=== PATIENT | female | born 1990 | race Caucasian/White ===

== ENCOUNTER → 2024-01-18 12:13 | Outpatient (REF) | payer OTHER, SELFPAY ==
[2024-01-18 14:39] LABS: % Basophils 0.9 % (0-2); % Eosinophils 1.3 % (0-6); % Immature Granulocytes 0.6 % (0-0.5); % Lymphocytes 24.9 % (20.5-51.1); % Monocytes 6.9 % (1.7-9.3); % Neutrophils 65.4 % (42.2-75.2); Absolute Basophils 0.1 10^3/uL (0-0.2); Absolute Eosinophils 0.1 10^3/uL (0-0.7); Absolute Lymphocytes 1.7 10^3/uL (1.2-3.4); Absolute Monocytes 0.5 10^3/uL (0.1-0.6); Absolute Neutrophils 4.4 10^3/uL (1.4-6.5); Hematocrit 39.9 % (37.0-47.0); Hemoglobin 14.3 g/dL (12.0-16.0); Mean Corp Hgb Conc. 35.8 g/dL (33.0-37.0); Mean Corpuscular Hgb 32.2 pg (27.0-31.0); Mean Corpuscular Volume 89.9 fL (81.0-99.0); Mean Platelet Volume 9.8 fL (7.4-10.4); Nucleated Red Blood Cells % 0 %; Platelet Count 287 10^3/uL (130-400); Red Blood Cell Count 4.44 10^6/uL (4.20-5.40); Red Cell Dist. Width 11.9 % (11.5-14.5); White Blood Cell Count 6.7 10^3/uL (4.8-10.8)
[2024-01-18 14:55] LABS: ALT (SGPT) 20 U/L (0-35); AST (SGOT) 22 U/L (14-36); Albumin 5.1 g/dl (3.5-5.0); Alkaline Phosphatase 51 U/L (38-126); Blood Urea Nitrogen 10 mg/dl (7-17); Carbon Dioxide 29 mmol/L (22-30); Chloride 101 mmol/L (98-107); Glucose 87 mg/dl (70-99); Lipase 75 U/L (23-300); Potassium 4.2 mmol/L (3.5-5.1); Sodium 140 mmol/L (135-145); Total Bilirubin 0.3 mg/dl (0.2-1.3); Total Protein 7.5 g/dl (6.3-8.2); eGFR > 60.00
[2024-01-18 14:59] LABS: D-Dimer < 0.27 ug/mlFEU (0.00-0.50)
== END ==
LOC: HWLAB 12:13
PROVIDERS: ATTENDING PHYSICIAN Nurse Practitioner Family
DX: R06.09 Other forms of dyspnea (principal); R10.11 Right upper quadrant pain
CPT/HCPCS: 36415; 71046; 80053; 83690; 85025; 85379

== ENCOUNTER 2024-01-31 15:16 | Emergency (ER) | payer OTHER, SELFPAY ==
[2024-01-31 15:19] VITALS: BP 109/69
[2024-01-31 15:58] LABS: Urine Albumin Negative (Neg - Trace); Urine Bilirubin Negative (Negative); Urine Character Clear (Clear); Urine Color Yellow; Urine Glucose Negative (Negative); Urine Ketone Negative (Negative); Urine Leukocyte Negative (Negative); Urine Nitrite Negative (Negative); Urine Occult Blood Negative (Negative); Urine Specific Gravity 1.015 (<1.030); Urine Urobilinogen Negative (Neg - 1+)
[2024-01-31 18:06] LABS: % Eosinophils 1.7 % (0-6); % Immature Granulocytes 0.4 % (0-0.5); % Lymphocytes 32.2 % (20.5-51.1); % Monocytes 6.8 % (1.7-9.3); % Neutrophils 57.9 % (42.2-75.2); Absolute Basophils 0.1 10^3/uL (0-0.2); Absolute Eosinophils 0.1 10^3/uL (0-0.7); Absolute Lymphocytes 2.3 10^3/uL (1.2-3.4); Absolute Monocytes 0.5 10^3/uL (0.1-0.6); Absolute Neutrophils 4.1 10^3/uL (1.4-6.5); Hematocrit 37.6 % (37.0-47.0); Hemoglobin 13.7 g/dL (12.0-16.0); Mean Corp Hgb Conc. 36.4 g/dL (33.0-37.0); Mean Corpuscular Hgb 32.2 pg (27.0-31.0); Mean Corpuscular Volume 88.5 fL (81.0-99.0); Mean Platelet Volume 9.6 fL (7.4-10.4); Nucleated Red Blood Cells % 0 %; Platelet Count 268 10^3/uL (130-400); Red Blood Cell Count 4.25 10^6/uL (4.20-5.40); Red Cell Dist. Width 11.6 % (11.5-14.5); White Blood Cell Count 7.1 10^3/uL (4.8-10.8)
--- NOTE | 2024-01-31 18:06 | ED.GENMED ---
History of Present Illness
<Rachel Silva CBX OPERATOR - Last Filed: 01/31/24 18:12>
General
Chief Complaint: Abdominal Symptoms
Source: patient
Exam Limitations: none
Time Seen by Provider: 01/31/24 17:06
Nursing documentation reviewed up to this point in time: agreed with
History of Present Illness
History of Present Illness:
33 yo female w h/o colitis, IBS, presents stating she's had abdominal pains 2 weeks ago LUQ, saw PCP, had labs CXR were normal. Pain subsided for 3 days, then returned worse 2 days ago and now is worse left abdomen but entire abdomen is tender. It
is constant, dull/achy with intermittent sharp pains. She also started with non bloody diarrhea 2 days ago. She has nausea but no vomiting. Pain now 5/10. She also notes 'a little burning' with urination.
Past History
<Rachel Silva CBX OPERATOR - Last Filed: 01/31/24 18:12>
Past History
ED Past Medical History: Other (Pet allergies takes Zyrtec daily)
ED Past Surgical History: Other (sinus surgery 2016)
Social History
Tobacco: Non-smoker
Alcohol: Occasional
Drug: None
Personal:
Living: with family
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
Family History
Family History: Other (Sister with diabetes. No history of subarachnoid hemorrhage in family)
Review of Systems
<Rachel Silva, CBX OPERATOR - Last Filed: 01/31/24 18:12>
Review of Systems
Allergies reviewed?: Yes
All Other Systems: ROS reviewed and negative except as documented in HPI and ROS
Constitutional: Denies fever
Respiratory: Denies trouble breathing
Cardiac: Denies chest pain
ABD/GI: Reports abdominal pain, nausea, diarrhea and anorexia; Denies vomiting, bloody stools or black stools
: Reports dysuria (mild); Denies frequency, flank pain, difficulty voiding or urgency
Musculoskeletal: Reports no symptoms
Skin: Reports no symptoms
Neurological: Reports no symptoms
Phy Exam
<Rachel Silva CBX OPERATOR - Last Filed: 01/31/24 18:12>
Physical Exam
Physical Exam:
GENERAL: No acute distress. A&Ox3.
CONSTITUTIONAL: Afebrile.
EYES: clear, conjunctivae normal
ENMT: moist mucus membranes, Pharynx nl
RESPIRATORY: Regular respirations, nonlabored, lungs clear.
CARDIOVASCULAR: Regular rate and rhythm, no murmurs, no rubs.
GI: Soft, generally tender to palpation, normal BS
MUSCULOSKELETAL: Moves with ease. Well perfused.
SKIN: Warm, dry, pink
PSYCH: Normal mood and affect. Well kept, interactive and appropriate
NEUROLOGIC: Awake, alert and oriented. No focal neurological deficits
Course
<Rachel Silva, CBX OPERATOR - Last Filed: 01/31/24 18:12>
Orders/Labs/Results
Orders:
Orders
01/31/24 15:35
Comprehensive Metabolic Panel Urgent
HCG, Serum Qualitative Screen Urgent
Comment: ADD ON
Lipase Urgent
01/31/24 15:45
Urinalysis Reflex To Culture Urgent
Date Specimen was Collected: 01/31/24
Time Specimen was Collected: 15:22
01/31/24 17:05
Add On- LAB Urgent
Tests Added?: beta HCG qualitative
01/31/24 17:50
CT Abd/Pel (IV only)-DH only Urgent
Comment:
Reason For Exam: general abd pain, moreso in left, diarrhea
01/31/24 17:55
Complete Blood Count/With Diff Urgent
Abnormal Lab Results
01/31/24
17:55
MCH 32.2 H pg
(27.0-31.0)
01/31/24 17:55
01/31/24 15:35
Vital Signs
Initial and Last Documented VS:
Initial Vital Signs
Temp Pulse Resp BP Pulse Ox
98.8 F 85 16 109/69 98
01/31/24 15:19 01/31/24 15:19 01/31/24 15:19 01/31/24 15:19 01/31/24 15:19
Last Documented Vital Signs
Temp Pulse Resp BP Pulse Ox
98.8 F 68 18 120/76 98
01/31/24 15:19 01/31/24 20:21 01/31/24 20:21 01/31/24 20:21 01/31/24 20:21
<Emmanuelle Soliman, CBX OPERATOR - Last Filed: 01/31/24 23:51>
Orders/Labs/Results
Orders:
Orders
01/31/24 15:35
Comprehensive Metabolic Panel Urgent
HCG, Serum Qualitative Screen Urgent
Comment: ADD ON
Lipase Urgent
01/31/24 15:45
Urinalysis Reflex To Culture Urgent
Date Specimen was Collected: 01/31/24
Time Specimen was Collected: 15:22
01/31/24 17:05
Add On- LAB Urgent
Tests Added?: beta HCG qualitative
01/31/24 17:50
CT Abd/Pel (IV only)-DH only Urgent
Comment:
Reason For Exam: general abd pain, moreso in left, diarrhea
01/31/24 17:55
Complete Blood Count/With Diff Urgent
Abnormal Lab Results
01/31/24
17:55
MCH 32.2 H pg
(27.0-31.0)
01/31/24 17:55
01/31/24 15:35
Vital Signs
Initial and Last Documented VS:
Initial Vital Signs
Temp Pulse Resp BP Pulse Ox
98.8 F 85 16 109/69 98
01/31/24 15:19 01/31/24 15:19 01/31/24 15:19 01/31/24 15:19 01/31/24 15:19
Last Documented Vital Signs
Temp Pulse Resp BP Pulse Ox
98.8 F 68 18 120/76 98
01/31/24 15:19 01/31/24 20:21 01/31/24 20:21 01/31/24 20:21 01/31/24 20:21
<Rachel Silva, CBX OPERATOR - Last Filed: 01/31/24 18:12>
MDM/Problems Addressed
Differential Diagnosis Includes:
diverticulitis, colitis
MDM/Problems Addressed:
33 yo female w h/o colitis, IBS, presents stating she's had abdominal pains 2 weeks ago LUQ, saw PCP, had labs CXR were normal. Pain subsided for 3 days, then returned worse 2 days ago and now is worse left abdomen but entire abdomen is tender. It
is constant, dull/achy with intermittent sharp pains. She also started with non bloody diarrhea 2 days ago. She has nausea but no vomiting. Pain now 5/10. She also notes 'a little burning' with urination.
<Emmanuelle Soliman CBX OPERATOR - Last Filed: 01/31/24 23:51>
*Critical Care Note
Total Time (30-74mins, 75-104mins- exclusive of procedures): Not Applicable
<Emmanuelle Soliman CBX OPERATOR - Last Filed: 01/31/24 23:51>
Update Note
Update Note:
CT results discussed with patient. No findings to explain her sympptoms. SHe is discharged home, will follow up with her PCP. Given instructions on s/s to return to ED and she is agreeable to plan.
ED Attending Note
<Rachel Silva CBX OPERATOR - Last Filed: 01/31/24 18:12>
-
Portions of this chart may have been created with voice recognition software.� Occasional wrong word or��sound alike� substitutions may have occurred due to the inherent limitations of voice recognition software.
Discharge Plan
Departure
Patient Disposition: Home (Routine Discharge)
Date of Disposition: 01/31/24
Time of Disposition: 20:17
Patient with high blood pressure during this ER visit?: No
Condition: Good
Covid-19: Not Applicable
Discharge Problem:
Abdominal pain
Instructions: Diarrhea in teens and adults, Abdominal Pain
Prescriptions:
No Action
Vitamin
1 tab PO DAILY
Zyrtec tablet
10 mg PO DAILY
acetaminophen 325 mg Tablet
650 mg PO Q4HPRN PRN (Reason: mild pain) Qty: 0 0RF
ibuprofen 600 mg Tablet
600 mg PO Q6HPRN PRN (Reason: moderate pain/cramps) Qty: 0 0RF
Referrals:
Russell Woods CRNP [Family Provider] - Tomorrow
Activity Restrictions/Additional Instructions:
Return to the emergency department immediately for any changes in/worsening of your symptoms.
Interventions
Interventions:
*Risk Screen - Suicide Last Done: 01/31/24 15:19
*General Assessment Last Done: 01/31/24 17:17
*Neglect/Abuse Screening Last Done: 01/31/24 15:19
ED- Fall Risk Assessment Last Done: 01/31/24 17:36
*Nursing Disposition Last Done: 01/31/24 20:21
CW-Fuhvlb-Famzzhfqub Assessment Last Done: 01/31/24 17:36
Discharge Date and Time
Discharge Date/Time: 01/31/24 20:22
Print Language: GEORGIAN
[2024-01-31 18:16] LABS: HCG, Serum Qualitative Screen Negative
[2024-01-31 18:20] LABS: ALT (SGPT) 16 U/L (0-35); AST (SGOT) 18 U/L (14-36); Albumin 4.7 g/dl (3.5-5.0); Alkaline Phosphatase 57 U/L (38-126); Blood Urea Nitrogen 11 mg/dl (7-17); Carbon Dioxide 23 mmol/L (22-30); Chloride 102 mmol/L (98-107); Glucose 91 mg/dl (70-99); Lipase 81 U/L (23-300); Potassium 4.2 mmol/L (3.5-5.1); Sodium 139 mmol/L (135-145); Total Bilirubin 0.2 mg/dl (0.2-1.3); eGFR > 60.00
[2024-01-31 20:21] VITALS: BP 120/76
== END 2024-01-31 20:22 | disposition home or self-care (01) ==
LOC: EMR 15:16
PROVIDERS: Emergency Medicine; EMERGENCY PHYSICIAN Emergency Medicine; FAMILY PHYSICIAN Nurse Practitioner Family
DX: R10.9 Unspecified abdominal pain (principal); R11.0 Nausea; R30.9 Painful micturition, unspecified; R19.7 Diarrhea, unspecified; K52.9 Noninfective gastroenteritis and colitis, unspecified; K58.9 Irritable bowel syndrome, unspecified; G43.909 Migraine, unspecified, not intractable, without status migrainosus; Z88.1 Allergy status to other antibiotic agents; Z88.0 Allergy status to penicillin
CPT/HCPCS: 99284; 74177; 80053; 81003; 83690; 84703; 85025; Q9967